=== PATIENT | male | born 1980 | race Native Hawaiian/Other Pacific Islander ===

== ENCOUNTER 2022-03-08 09:45 | Day surgery (SDC) | payer OTHER, SELFPAY ==
--- NOTE | 2022-03-08 | COLBX_PTH ---
PATIENT: HIRAL ALONSO LOC: EN U#:[id number] AGE/SX: 41/M ROOM: RE03/08/[address]: Dr. Aristeo Velásquez MD : 1980 BED: DIS: 03/08/2022 SPEC #: [id number] RECD: 03/08/22 13:21 STATUS: GABBY REYES #: [id number] PAYAL: 03/08/22 00:[address]: Aristeo Velásquez DEPT: SURGICAL PATHOLOGY RECD BY: Liban Bright ENTERED: 03/08/22 13:21 SP TYPE: COLON BX OTHR DR: Dr. Paolo Mccall MD Tissues: Ascending colon Procedures: Surgery Specimen Level IV HEADER OPERATION: Colonoscopy (MAC), polypectomy PRE-OP DIAGNOSIS: Tubular adenoma of colon TISSUE SUBMITTED: Distal ascending polyp MICROSCOPIC DIAGNOSIS Distal ascending colon polyp, biopsy: Tubular adenoma. AM:camila 03/11/2022 MICROSCOPIC DESCRIPTION Slides are reviewed. GROSS DESCRIPTION Received in fixative is one container labeled with the patient's name and designated distal ascending polyp. The specimen consists of one irregular fragment of light fuller soft tissue that measures 0.7 x 0.2 x 0.1 cm. The specimen is totally submitted in one cassette. / AM:camila 03/08/2022 TC:5 CPT: 13181
[2022-03-08 10:23] VITALS: BP 129/73; PULSE 65; RESP 16; TEMP 36.8; O2SAT 99; BMI 27.1
[2022-03-08] MEDS: Lactated Ringers 1,000 ML 15 ML IV (10:27)
--- NOTE | 2022-03-08 10:28 | HP.PCM_ITS ---
History and Physical Date of Admission: 03/08/22 Intake Vital Signs ? 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 Aristeo Velásquez MD) History of colon polyps Surgical History?(Updated 02/11/22 @ 09:26 by Yelitza Friday) H/O right knee surgery History of colonoscopy Social History?(Updated 02/11/22 @ 09:27 by Yelitza Friday) Smoking Status:? Former smoker alcohol intake:? current alcohol intake frequency: a few times a month details:? occasional substance use type:? does not use HPI HPI HPI: Patient is a 41-year-old male here with a large tubular adenoma.? Patient had screening colonoscopy in [place] and was found to have 11 polyps.? 10 of these were removed but one was too large removed.? He says this was for screening and his last colonoscopy was in 2014.? He does not know the area of the colon that this polyp was and that was unable to be removed. ROS General General: No weight change, appetite, fatigue, colon cancer, breast cancer or weakness HEENT HEENT: No difficulty swallowing, eye injury, eye surgery, swollen glands or hoarseness Endo Endocrine: No thyroid disease, diabetes mellitus, thyroid cancer, Hair loss, heat intolerance or cold intolerance Skin Skin: No rash or changing moles Musc Musculoskeletal: No back problems, arthritis, rheumatoid arthritis, gout or joint pain Cardio Cardiovascular: No murmur, pacemaker, heart disease, atrial fibrillation, high blood pressure, heart attack, heart stent, palpitations, shortness of breat with exertion or chest pain Psych Psychiatric: No depression, anxiety or hearing voices Resp Respiratory: No shortness of breath, No sleep apnea, No cough, No COPD, No asthma, No emphysema and No wheezing Gastro Gastrointestinal: No abdominal pain, No nausea or vomiting, No diarrhea, No constipation, No blood in stool, No acid reflux, No hemorrhoids, No ulcers, No gallbladder problem and No black,tarry stools Isai Hematologic: No blood thinners, No blood disorders, No bleeding, No anemia and No blood clots Neuro Neurologic: No system reviewed and no additional complaints, except as documented, No as per HPI, No abnormal gait, No abnormal hearing, No abnormal movements, No abnormal speech, No behavioral changes, No burning sensations, No confusion, No convulsions, No disequilibrium, No dizziness, No localized weakness, No frequent falls, No headache(s), No lack of coordination, No loss of vision, No memory loss, No numbness, No other visual disturbances, No radicular pain, No restless legs, No sensory deficit, No syncope, No tingling, No tremor(s), No weakness and No other Exam Const General: cooperative Orientation: alert and oriented x3 HENMT Head: normal to inspection Neck Neck: normal visual inspection and full ROM Chest Chest palpation & inspection: normal inspection of the chest Resp Effort & Inspection: normal respiratory effort Auscultation: clear to auscultation bilaterally Cardio Rate: regular rate Rhythm: regular rhythm GI Inspection: non-distended Palpation: soft and nontender Skin General: no rashes or lesions noted Neuro General: patient alert and patient oriented x3 Extrem General: full ROM Psych Appearance: grossly normal Mental Status: mental status grossly normal Assessment and Plan Assessment and Plan (1) Tubular adenoma of colon: ?Status:?Acute ?Plan: The patient had a tubular adenoma that was too large to be removed found on a colonoscopy in [place].? I am unable to obtain any operative notes or location for this polyp.? I would like to repeat his colonoscopy myself that way I would be able to identify the polyp and possibly removed in piecemeal fashion either came back as a tubular adenoma versus being able to place a clip and tattoo for localization.? I discussed this with him in detail and he is agreeable.? If I am unable to remove this in piecemeal fashion I will marked with tattoo and clipped and then plan for partial colectomy. I explained endoscopy in detail to the patient.? I explained the risks including but not limited to stroke or heart attack with anesthesia, perforation of the GI tract, bleeding, infection.? I explained that any of these could necessitate further emergency surgery.? The patient understands and all questions were answered sufficiently.? The patient wishes to proceed with procedure. Aristeo Velásquez MD Pager: [facility] [address] [place] [address] [address] [place] [address] Office: I have examined the patient and the H&P has been reviewed. There are no clinical changes since date of exam.
[2022-03-08 11:33] VITALS: BP 107/62; BP 129/73; PULSE 68; RESP 16; TEMP 36.3; O2SAT 95
--- NOTE | 2022-03-08 11:34 | OP.COLON_ITS ---
Patient Name: Pancho Neff Procedure Date: 03/08/2022 10:53 AM Date of : 1980 Age: 41 Procedure: Colonoscopy Indications: Therapeutic procedure for colon polyps Providers: Aristeo Velásquez MD Medicines: Monitored Anesthesia Care Patient Profile: Last Colonoscopy: within the past 6 months. Complications: No immediate complications. Procedure: Pre-Anesthesia Assessment: - Prior to the procedure, a History and Physical was performed, and patient medications and allergies were reviewed. The patient's tolerance of previous anesthesia was also reviewed. The risks and benefits of the procedure and the sedation options and risks were discussed with the patient. All questions were answered, and informed consent was obtained. Prior Anticoagulants: The patient has taken no previous anticoagulant or antiplatelet agents. After reviewing the risks and benefits, the patient was deemed in satisfactory condition to undergo the procedure. After I obtained informed consent, the scope was passed under direct vision. Throughout the procedure, the patient's blood pressure, pulse, and oxygen saturations were monitored continuously. The adult colonoscope was introduced through the anus and advanced to the cecum, identified by appendiceal orifice and ileocecal valve. The colonoscopy was performed without difficulty. The patient tolerated the procedure well. The quality of the bowel preparation was good. Scope In: 11:05:30 AM Scope Withdrawal Time 0 hours 11 minutes 24 seconds Scope Out: 11:28:05 AM Total Procedure Duration Time 0 hours 22 minutes 35 seconds Findings: A medium polyp was found in the distal ascending colon. The polyp was removed with a hot snare. Resection and retrieval were complete. The exam was otherwise without abnormality on direct and retroflexion views. Impression: - One medium polyp in the distal ascending colon, removed with a hot snare. Resected and retrieved. - The examination was otherwise normal on direct and retroflexion views. Recommendation: - Discharge patient to home. - Resume previous diet. - Continue present medications. - Await pathology results. - Repeat colonoscopy in 3 years for surveillance. Procedure Code(s): --- Professional --- 81500, Colonoscopy, flexible; with removal of tumor(s), polyp(s), or other lesion(s) by snare technique Diagnosis Code(s): --- Professional --- D12.2, Benign neoplasm of ascending colon K63.5, Polyp of colon CPT copyright 2017 [employer]. All rights reserved. The codes documented in this report are preliminary and upon internal recruiter review may be revised to meet current compliance requirements. Aristeo Velásquez MD 03/08/2022 11:34:33 AM This report has been signed electronically. Number of Addenda: 0 Note Initiated On: 03/08/2022 10:53 AM
--- NOTE | 2022-03-08 11:35 | OP.CCLET_ITS ---
03/08/2022 Paolo Mccall Re : Colonoscopy procedure for Pancho Alonzor Stefany This procedure was performed on Tuesday, March 08, 2022. My impressions and recommendations are as follows: Impressions : - One medium polyp in the distal ascending colon, removed with a hot snare. Resected and retrieved. - The examination was otherwise normal on direct and retroflexion views. Recommendations : - Discharge patient to home. - Resume previous diet. - Continue present medications. - Await pathology results. - Repeat colonoscopy in 3 years for surveillance. My findings are described in the full procedure note, which is enclosed. If I can be of further assistance, please feel free to contact me at Doctor phone number(s): , Work: . Sincerely, Aristeo Velásquez MD 03/08/2022 11:34:33 AM This report has been signed electronically.
[2022-03-08 11:40] VITALS: BP 110/66; BP 129/73; PULSE 62; RESP 16; O2SAT 99
[2022-03-08 11:45] VITALS: BP 113/68; BP 129/73; PULSE 57; RESP 16; O2SAT 100
[2022-03-08 12:00] VITALS: BP 115/71; BP 129/73; PULSE 56; RESP 16; TEMP 36.3; O2SAT 100
[2022-03-08 12:24] VITALS: BP 129/73
== END 2022-03-08 12:25 | disposition home or self-care (01) ==
LOC: EN 09:47 → AC 09:48
PROVIDERS: PCP Family Medicine; Referring Provider Family Medicine; Visit Provider Surgery
PROC: 0DJD8ZZ Inspection of Lower Intestinal Tract, Via Natural or Artificial Opening Endoscopic (ICD-10-PCS; CPT 45378; principal; 2022-03-08 10:40)
DX: D12.2 Benign neoplasm of ascending colon (principal); F17.200 Nicotine dependence, unspecified, uncomplicated
CPT/HCPCS: 45385; 88305; J7120; J2405